=== PATIENT | male | born 1955 | race African-American/Black ===

== ENCOUNTER 2018-09-24 14:42 | Emergency (ER) | payer OTHER ==
[~2018-09-24 14:42] MED LIST: AMLO10TA80 PO; ASPI-1159 PO; DOCU-150 PO; RANI150T43 PO; THIAMINE 100 MG
== END 2018-09-24 15:00 | disposition left against medical advice (07) ==
LOC: ER 14:42
DX: M79.644 Pain in right finger(s) (principal); Z53.21 Procedure and treatment not carried out due to patient leaving prior to being seen by health care provider